=== PATIENT | female | born 1995 | race Caucasian/White ===

== ENCOUNTER 2022-11-26 08:24 | Emergency (ER) | payer MEDICAID, SELFPAY ==
[2022-11-26 08:32] VITALS: BP 134/80; PULSE 97; RESP 18; TEMP 37.4; O2SAT 100
--- NOTE | 2022-11-26 09:08 | ED.URI ---
HPI - URI/Sore Throat General Chief Complaint: Upper Respiratory Infection Stated Complaint: Cough/Fever Time Seen by Provider: 11/26/22 09:08 Source: patient, RN notes reviewed and old records reviewed Mode of arrival: ambulatory Limitations: no limitations History of Present Illness HPI Narrative: 27-year-old female who presents to [facility] with complaints cough and sore throat, fever, frontal headache, chills, fatigue for one week duration with congestion for 2 weeks. Patient reports that son is also ill with similar symptoms. Patient reports that she has been taking Tylenol for her symptoms. MD elicited complaint: fever, cough, sore throat and other (headache) Onset (ago): week(s) (1) Pain scale (0-10): 4 Able to tolerate fluids by mouth: Yes Treatments prior to arrival: acetaminophen Related Data Home Medications Medication Instructions Recorded Confirmed lisdexamfetamine 60 mg capsule 60 mg PO DAILY 11/26/22 11/26/22 (Vyvanse) norethindrone (contraceptive) 0.35 0.35 mg PO DAILY 11/26/22 11/26/22 mg tablet (Jencycla) venlafaxine 75 mg capsule,extended 75 mg PO DAILY 11/26/22 11/26/22 release 24 hr Allergies Allergy/AdvReac Type Severity Reaction Status Date / Time No Known Allergies Allergy Verified 11/26/22 08:48 Review of Systems Review of Systems: CONSTITUTIONAL: Denies malaise, chills, sweats, or fever. EYES: Denies visual changes, redness, or discharge. ENT: Reports rhinorrhea, congestion, sinus pain, otalgia and sore throat. CARDIOVASCULAR: Denies chest pain, palpitations, or edema. RESPIRATORY: Reports cough.? Denies dyspnea. GASTROINTESTINAL: Denies abdominal pain, nausea, vomiting, diarrhea SKIN: Denies rash or itching. MUSCULOSKELETAL: Denies myalgia. NEUROLOGIC: Denies headache. All systems reviewed & are unremarkable except as noted in HPI and below PMFSH Past Medical History Medical History (Updated 11/27/22 @ 15:16 by Susi Maria NP) ADHD (attention deficit hyperactivity disorder) Depression Social History Social History (Updated 11/27/22 @ 15:18 by Susi Maria NP) Smoking status: Current every day smoker Tobacco type: e-cigarettes/vaping Alcohol intake: current Alcohol use details: social Substance use type: does not use Living arrangements: with family Gender identity (if verbalized by the patient): Female Comments At time of signature, agree with nursing past medical, surgical, social and family history. There is no relevant family history pertinent to the presenting complaint Exam Narrative: GENERAL: Well-appearing, well-nourished, and in no acute distress. HEAD: Normocephalic EYES: PERRLA, conjunctivae clear ENT: Nares clear, turbinates edematous and erythematous, clear discharge. Mucous membranes moist. TM pearly martin with dull light reflex bilaterally; no tragal tenderness. Oropharynx erythematous without lesions. Tonsils not enlarged and without exudate, no drooling, no hoarseness, no trismus, uvula midline. NECK: Supple. No lymphadenopathy CHEST: Clear to auscultation, breath sounds equal. No wheezing, rhonchi, rales, or stridor. No respiratory distress, speaks in full sentences SAO2 100% on room air. HEART: Regular rate and rhythm. No murmur heard. SKIN: Warm, dry, no rash. NEURO: Alert and oriented x3. PSYCH: Normal mood and affect Course Course Emergency Course: Patient is aware of diagnosis, understands and agrees to treatment plan.? Anticipatory guidance given.? Patient agrees to follow-up as directed and is aware of reasons to seek care at the emergency department. Portions of this record may have been created with voice recognition software Level of Care: [facility] Visit Vital Signs Vital signs: Vital Signs Temperature 37.4 C 11/26/22 08:32 Pulse Rate 97 11/26/22 08:32 Respiratory Rate 18 11/26/22 08:32 Blood Pressure 134/80 11/26/22 08:32 Pulse Oximetry 100
== END 2022-11-26 09:40 | disposition home or self-care (01) ==
PROVIDERS: Emergency Provider Registered Nurse
DX: J06.9 Acute upper respiratory infection, unspecified (principal); F17.290 Nicotine dependence, other tobacco product, uncomplicated; Z20.822 Contact with and (suspected) exposure to COVID-19
CPT/HCPCS: 87081; 87426; 87880; 99213; C9803; G0463

== ENCOUNTER 2022-12-02 08:01 | Emergency (ER) | payer MEDICAID, SELFPAY ==
[2022-12-02 08:06] VITALS: BP 138/87; PULSE 100; RESP 14; TEMP 37.1; O2SAT 100
--- NOTE | 2022-12-02 08:11 | ED.URI ---
HPI - URI/Sore Throat General Chief Complaint: Upper Respiratory Infection Stated Complaint: congestion moved to throat Time Seen by Provider: 12/02/22 08:18 Source: patient and RN notes reviewed Mode of arrival: ambulatory Limitations: no limitations History of Present Illness HPI Narrative: 27-year-old female presents concern for ongoing cough, sore throat. Reports she was seen last week and treated with amoxicillin for sinus infection, she is toward the end of the antibiotic course. She reports her cough and sore throat or worse. She reports she no longer has fever, sinus congestion but still has a runny nose. She reports she has been taking Brovana Robitussin at home without relief of symptoms. MD elicited complaint: cough and sore throat Related Data Home Medications Medication Instructions Recorded Confirmed lisdexamfetamine 60 mg capsule 60 mg PO DAILY 11/26/22 12/02/22 (Vyvanse) norethindrone (contraceptive) 0.35 0.35 mg PO DAILY 11/26/22 12/02/22 mg tablet (Jencycla) venlafaxine 75 mg capsule,extended 75 mg PO DAILY 11/26/22 12/02/22 release 24 hr Allergies Allergy/AdvReac Type Severity Reaction Status Date / Time No Known Allergies Allergy Verified 12/02/22 08:15 Review of Systems Review of Systems: CONSTITUTIONAL: Denies malaise, chills, sweats, or fever. EYES: Denies visual changes, redness, or discharge. ENT: Reports rhinorrhea, sore throat. Denies congestion, sinus pain, otalgia CARDIOVASCULAR: Denies chest pain, palpitations, or edema. RESPIRATORY: Reports persistent cough. Denies dyspnea. GASTROINTESTINAL: Denies abdominal pain, nausea, vomiting, diarrhea SKIN: Denies rash or itching. MUSCULOSKELETAL: Denies myalgia. NEUROLOGIC: Denies headache. All systems reviewed & are unremarkable except as noted in HPI and below PMFSH Past Medical History Medical History (Updated 12/02/22 @ 08:26 by Jessy Beavers NP) ADHD (attention deficit hyperactivity disorder) Depression Social History Social History (Updated 11/27/22 @ 15:18 by Susi Maria NP) Smoking status: Current every day smoker Tobacco type: e-cigarettes/vaping Alcohol intake: current Alcohol use details: social Substance use type: does not use Living arrangements: with family Gender identity (if verbalized by the patient): Female Comments At time of signature, agree with nursing past medical, surgical, social and family history. There is no relevant family history pertinent to the presenting complaint Exam Narrative: GENERAL: Well-appearing, well-nourished, and in no acute distress. HEAD: Normocephalic EYES: PERRLA, conjunctivae clear ENT: Nares clear, clear discharge. Mucous membranes moist. TM pearly martin with dull light reflex on the left, sharp on the right; no tragal tenderness. Oropharynx erythematous without lesions. Tonsils not enlarged and without exudate, no drooling, no trismus, uvula midline. Mild hoarse voice NECK: Supple. No lymphadenopathy CHEST: Clear to auscultation, breath sounds equal. No wheezing, rhonchi, rales, or stridor. No respiratory distress, speaks in full sentences. Cough noted HEART: Regular rate and rhythm. No murmur heard. SKIN: Warm, dry, no rash. NEURO: Alert and oriented x3. PSYCH: Normal mood and affect Course Course Emergency Course: Patient is aware of diagnosis, understands and agrees to treatment plan. Anticipatory guidance given. Patient agrees to follow-up as directed and is aware of reasons to seek care at the emergency department. Portions of this record may have been created with voice recognition software Level of Care: [facility] Visit Vital Signs Vital signs: Vital Signs Temperature 98.7 F 12/02/22 08:06 Pulse Rate 100 12/02/22 08:06 Respiratory Rate 14 12/02/22 08:06 Blood Pressure 138/87 12/02/22 08:06 Pulse Oximetry 100 12/02/22 08:06 Oxygen Delivery Room Air 12/02/22 08:06 Temperature 98.7 F 12/02/22 08:06 P
== END 2022-12-02 08:33 | disposition home or self-care (01) ==
PROVIDERS: Emergency Provider Nurse Practitioner
DX: J40 Bronchitis, not specified as acute or chronic (principal); F17.290 Nicotine dependence, other tobacco product, uncomplicated; F90.9 Attention-deficit hyperactivity disorder, unspecified type; F32.A Depression, unspecified
CPT/HCPCS: 99213; G0463

== ENCOUNTER 2023-01-02 08:38 | Emergency (ER) | payer OTHER, SELFPAY ==
[2023-01-02 08:55] VITALS: BP 129/73; PULSE 92; RESP 18; TEMP 36.7; O2SAT 100
[2023-01-02 09:05] VITALS: BP 129/73; PULSE 92; RESP 18; TEMP 36.7; O2SAT 100
--- NOTE | 2023-01-02 09:36 | ED.EYEPROB ---
HPI - Eye Problem General Chief complaint: Eye Problems Stated complaint: left eye Time Seen by Provider: 01/02/23 09:40 Source: patient, RN notes reviewed and old records reviewed Mode of arrival: ambulatory Limitations: no limitations History of Present Illness HPI Narrative: 27-year-old female who presents to [facility] with complaints of left eye matting shut this morning with yellowish drainage and some eye swelling. Patient states that she took contact out 2 days ago and tore it when taking it out, thought maybe part is still in there with no evidence of contact in eye on examination. Patient reports that she does not have glasses to wear and vision noted on visual acuity to be 20/200 without corrective lenses.Patient reports that left eye is itchy no acute pain voiced and matting of eye this morning. MD chief complaint: eye pain, eye redness and other (drainage) Onset (ago): day(s) (2 increased symptoms today) Eye Symptoms: redness, itching and discharge Severity scale (1-10): 2 Treatments Prior to Arrival: none Related Data Home Medications Medication Instructions Recorded Confirmed lisdexamfetamine 60 mg capsule 60 mg PO DAILY 11/26/22 01/02/23 (Vyvanse) norethindrone (contraceptive) 0.35 0.35 mg PO DAILY 11/26/22 01/02/23 mg tablet (Jencycla) venlafaxine 75 mg capsule,extended 75 mg PO DAILY 11/26/22 01/02/23 release 24 hr clonidine HCl 0.1 mg tablet 0.1 mg PO TID 01/02/23 01/02/23 ergocalciferol (vitamin D2) 1,250 1,250 mcg PO WEEKLY 01/02/23 01/02/23 mcg (50,000 unit) capsule lurasidone 60 mg tablet 60 mg PO DAILY 01/02/23 01/02/23 Allergies Allergy/AdvReac Type Severity Reaction Status Date / Time No Known Allergies Allergy Verified 12/02/22 08:15 Review of Systems Review of Systems: CONSTITUTIONAL: Denies fever, chills, or sweats. EYES: Denies visual changes. Reports redness,, irritation, discharge left eye, no acute pain or photophobia ENT: Denies rhinorrhea, congestion, sore throat, or otalgia. CARDIOVASCULAR: Denies chest pain, palpitations, or edema. RESPIRATORY: Denies cough or dyspnea. SKIN: Denies rash or itching. NEUROLOGIC: Denies headache All systems reviewed & are unremarkable except as noted in HPI and below PMFSH Past Medical History Medical History (Updated 01/03/23 @ 00:01 by Дмитрий Oconnor) ADHD (attention deficit hyperactivity disorder) Depression Social History Social History (Updated 11/27/22 @ 15:18 by Susi Maria NP) Smoking status: Current every day smoker Tobacco type: e-cigarettes/vaping Alcohol intake: current Alcohol use details: social Substance use type: does not use Living arrangements: with family Gender identity (if verbalized by the patient): Female Comments At time of signature, agree with nursing past medical, surgical, social and family history. There is no relevant family history pertinent to the presenting complaint Exam Narrative: GENERAL: Well-appearing, well-nourished, and in no acute distress. HEAD: Normocephalic, atraumatic. EYES: PERRLA and EOMI. Upper and lower eyelids unremarkable. No periorbital cellulitis noted. Sclera and conjunctivae injected left eye with yellowish discharge ENT: Nares clear, no rhinorrhea or epistaxis. Mucous membranes moist.TM's normal, throat pink with no swelling NECK: Supple. no lymphadenopathy CHEST: Clear to auscultation. No respiratory distress.SAO2 100% on room air HEART: Regular rate and rhythm. No murmur heard. Normal peripheral pulses. SKIN: Warm, dry, no rash. NEURO: No focal deficits. Alert and oriented x3. Course Course Emergency Course: Patient is aware of diagnosis, understands and agrees to treatment plan. Anticipatory guidance given. Patient agrees to follow-up as directed and is aware of reasons to seek care at the emergency department. Portions of this record may have been created with voice recognition software Level of Care: [facility] Visit Vital Signs Vital
== END 2023-01-02 09:54 | disposition home or self-care (01) ==
PROVIDERS: Emergency Provider Registered Nurse
DX: H10.9 Unspecified conjunctivitis (principal); F90.9 Attention-deficit hyperactivity disorder, unspecified type; F32.A Depression, unspecified; F17.290 Nicotine dependence, other tobacco product, uncomplicated
CPT/HCPCS: 99213; G0463